=== PATIENT | female | born 1960 | race Caucasian/White ===

== ENCOUNTER 2017-09-05 23:53 | Observation (INO) | payer OTHER ==
[2017-09-06] MEDS: ALBUTEROL 0.083% (NEB) 2.5 MG/3 ML AMP NEB (01:22)
[2017-09-06] MEDS: IPRATROPIUM (NEB) 0.5 MG/2.5 ML AMP NEB (01:22)
[2017-09-06 01:24] LABS: ADD MAN DIFF? NO
[2017-09-06 01:25] LABS: WHITE BLOOD COUNT 4.4 10^3/ul (4.8-10.8)
[2017-09-06 01:25] LABS: BASOPHILS % 0.5 % (0.0-2.0); EOSINOPHILS # 0.1 10^3/ul (0.0-0.5); EOSINOPHILS % 2.7 % (0.0-7.0); HEMATOCRIT 38.1 % (37.0-47.0); HEMOGLOBIN 11.6 g/dl (12.0-16.0); LYMPHOCYTES # 1.3 10^3/ul (0.8-2.9); LYMPHOCYTES % 28.8 % (15.0-51.0); MEAN CORPUSCULAR HEMOGLOBIN 23.4 pg (29.0-33.0); MEAN CORPUSCULAR HGB CONC 30.4 g/dl (32.0-37.0); MEAN PLATELET VOLUME 10.2 fl (7.4-10.4); MONOCYTE # 0.6 10^3/ul (0.3-0.9); MONOCYTES % 12.8 % (0.0-11.0); NEUTROPHIL # 2.4 10^3/ul (1.6-7.5); PLATELET COUNT 220 10^3/UL (140-415); RED BLOOD COUNT 4.95 10^6/ul (4.20-5.40); RED CELL DISTRIBUTION WIDTH 17.4 % (11.5-14.5)
[2017-09-06 01:44] LABS: ANION GAP 10 (8-16); BLOOD UREA NITROGEN 11 mg/dl (7-20); CALCIUM 8.6 mg/dl (8.4-10.2); CARBON DIOXIDE 28 mmol/L (21-31); CHLORIDE 107 mmol/L (97-110); CREATININE 0.64 mg/dl (0.44-1.00); GLUCOSE 174 mg/dl (70-220); POTASSIUM 4.2 mmol/L (3.5-5.1); SODIUM 141 mmol/L (135-144)
[2017-09-06 01:55] LABS: TROPONIN-I < 0.010 ng/ml (0.000-0.120)
[2017-09-06] MEDS ORDERED: BISACODYL (EC) 5 MG TAB PO (03:30)
[2017-09-06] MEDS ORDERED: NITROGLYCERIN (SL) 0.4 MG TAB SL (03:30)
[2017-09-06] MEDS ORDERED: NACL 0.9% 3 ML SYG IV (03:30)
[2017-09-06] MEDS ORDERED: morphine 2 MG INJ IV (03:30)
[2017-09-06] MEDS ORDERED: ONDANSETRON 4 MG INJ IV (03:30)
[2017-09-06] MEDS ORDERED: DOCUSATE SODIUM 100 MG CAP PO (03:30)
[2017-09-06] MEDS ORDERED: ACETAMINOPHEN 325 MG TAB PO (03:30)
[2017-09-06] MEDS: FUROSEMIDE 40 MG INJ IV (03:39)
[2017-09-06 06:11] LABS: ADD MAN DIFF? NO
[2017-09-06 06:24] LABS: WHITE BLOOD COUNT 3.8 10^3/ul (4.8-10.8)
[2017-09-06 06:24] LABS: BASOPHILS % 0.5 % (0.0-2.0); EOSINOPHILS # 0.1 10^3/ul (0.0-0.5); EOSINOPHILS % 2.1 % (0.0-7.0); HEMATOCRIT 36.9 % (37.0-47.0); HEMOGLOBIN 11.3 g/dl (12.0-16.0); LYMPHOCYTES # 1.3 10^3/ul (0.8-2.9); LYMPHOCYTES % 33.1 % (15.0-51.0); MEAN CORPUSCULAR HEMOGLOBIN 23.3 pg (29.0-33.0); MEAN CORPUSCULAR HGB CONC 30.6 g/dl (32.0-37.0); MEAN CORPUSCULAR VOLUME 76.2 fl (82.0-101.0); MEAN PLATELET VOLUME 10.6 fl (7.4-10.4); MONOCYTE # 0.5 10^3/ul (0.3-0.9); MONOCYTES % 12.8 % (0.0-11.0); NEUTROPHILS % 51.2 % (39.0-77.0); PLATELET COUNT 215 10^3/UL (140-415); RED BLOOD COUNT 4.84 10^6/ul (4.20-5.40); RED CELL DISTRIBUTION WIDTH 17.5 % (11.5-14.5)
[2017-09-06 06:48] LABS: IRON 18 ug/dl (35-150)
[2017-09-06 07:03] LABS: % IRON SATURATION 6 % SAT (22-52); TOTAL IRON BINDING CAPACITY 316 ug/dl (241-421)
[2017-09-06 07:17] LABS: ALANINE AMINOTRANSFERASE 30 IU/L (13-69); ALBUMIN/GLOBULIN RATIO 1.21; ALKALINE PHOSPHATASE 88 IU/L (42-121); ANION GAP 14 (8-16); ASPARTATE AMINO TRANSFERASE 28 IU/L (15-46); BLOOD UREA NITROGEN 9 mg/dl (7-20); CALCIUM 8.6 mg/dl (8.4-10.2); CARBON DIOXIDE 29 mmol/L (21-31); CHLORIDE 104 mmol/L (97-110); CHOL/HDL RATIO 6.5 RATIO; CHOLESTEROL 255 mg/dl (100-200); CREATININE 0.61 mg/dl (0.44-1.00); GLUCOSE 158 mg/dl (70-220); HDL CHOLESTEROL 39 mg/dl (37-92); LDL CHOLESTEROL,CALCULATED 189 mg/dl; MAGNESIUM 1.7 mg/dl (1.7-2.5); POTASSIUM 3.5 mmol/L (3.5-5.1); SODIUM 143 mmol/L (135-144); TOTAL PROTEIN 7.3 g/dl (6.1-8.1); TRIGLYCERIDES 135 mg/dl (0-149)
[2017-09-06 07:25] LABS: CREATINE KINASE 41 IU/L (23-200)
[2017-09-06 07:38] LABS: CK-MB 0.81 ng/ml (0.0-2.4); TROPONIN-I < 0.010 ng/ml (0.000-0.120)
[2017-09-06 08:20] LABS: B-TYPE NATRIURETIC PEPTIDE 767 PG/ML (0-125)
[2017-09-06] MEDS: ASPIRIN 81 MG TAB PO (09:40)
[2017-09-06] MEDS: FUROSEMIDE 20 MG INJ IV ×2 (09:40→17:36)
[2017-09-06 10:33] LABS: FREE T4 (FREE THYROXINE) 1.06 ng/dl (0.64-1.79)
[2017-09-06] MEDS ORDERED: ALBUTEROL/IPRATROPIUM (NEB) 3 ML AMP HHN (12:00)
[2017-09-06 12:18] LABS: ADD UMIC NO; UR ASCORBIC ACID NEGATIVE (NEGATIVE); UR BILIRUBIN (Dip) NEGATIVE (NEGATIVE); UR BLOOD (Dip) NEGATIVE (NEGATIVE); UR CLARITY CLEAR (CLEAR); UR COLOR YELLOW (YELLOW); UR GLUCOSE (Dip) NEGATIVE (NEGATIVE); UR KETONES (Dip) NEGATIVE (NEGATIVE); UR LEUKOCYTE ESTERASE (Dip) NEGATIVE Leu/ul (NEGATIVE); UR NITRITE (Dip) NEGATIVE (NEGATIVE); UR SPECIFIC GRAVITY (Dip) 1.011 (1.003-1.030); UR TOTAL PROTEIN (Dip) NEGATIVE (NEGATIVE); UR UROBILINOGEN (Dip) NEGATIVE (NEGATIVE)
[2017-09-06 13:13] LABS: CREATINE KINASE 38 IU/L (23-200)
[2017-09-06 13:27] LABS: CK INDEX 1.5; CK-MB 0.56 ng/ml (0.0-2.4); TROPONIN-I < 0.010 ng/ml (0.000-0.120)
[2017-09-06 13:54] LABS: FERRITIN 19.2 ng/ml (11.1-264.0)
[2017-09-06] MEDS: CEFTRIAXONE 2 GM/50 ML (PMX) 50 ML IVPB (14:18)
[2017-09-06] MEDS: ALBUTEROL/IPRATROPIUM (NEB) 3 ML AMP HHN ×2 (14:36→19:40)
[2017-09-06] MEDS: SPIRONOLACTONE 25 MG TAB PO (18:50)
[2017-09-06] MEDS: POTASSIUM CHLORIDE (SR) 20 MEQ TAB PO (18:50)
[2017-09-06] MEDS ORDERED: ATORVASTATIN 40 MG TAB PO (21:00)
[2017-09-06] MEDS ORDERED: METOPROLOL 25 MG TAB PO (21:00)
[2017-09-06] MEDS: MAGNESIUM SULFATE 3 GM in DEXTROSE 5% 100 ML IVPB (21:25)
[2017-09-06] MEDS: ATORVASTATIN 80 MG TAB PO (21:25)
[2017-09-06] MEDS: LOSARTAN 25 MG TAB PO (21:26)
[2017-09-07] MEDS: FUROSEMIDE 20 MG INJ IV (05:04)
[2017-09-07 06:33] LABS: ADD MAN DIFF? NO
[2017-09-07 06:44] LABS: WHITE BLOOD COUNT 4.3 10^3/ul (4.8-10.8)
[2017-09-07 06:44] LABS: BASOPHILS % 0.5 % (0.0-2.0); EOSINOPHILS # 0.2 10^3/ul (0.0-0.5); EOSINOPHILS % 3.5 % (0.0-7.0); HEMATOCRIT 40.4 % (37.0-47.0); HEMOGLOBIN 12.4 g/dl (12.0-16.0); LYMPHOCYTES # 1.7 10^3/ul (0.8-2.9); LYMPHOCYTES % 39.9 % (15.0-51.0); MEAN CORPUSCULAR HEMOGLOBIN 23.4 pg (29.0-33.0); MEAN CORPUSCULAR HGB CONC 30.7 g/dl (32.0-37.0); MEAN CORPUSCULAR VOLUME 76.4 fl (82.0-101.0); MEAN PLATELET VOLUME 10.5 fl (7.4-10.4); MONOCYTE # 0.5 10^3/ul (0.3-0.9); NEUTROPHIL # 1.9 10^3/ul (1.6-7.5); NEUTROPHILS % 43.9 % (39.0-77.0); PLATELET COUNT 252 10^3/UL (140-415); RED BLOOD COUNT 5.29 10^6/ul (4.20-5.40); RED CELL DISTRIBUTION WIDTH 17.4 % (11.5-14.5)
[2017-09-07 07:13] LABS: B-TYPE NATRIURETIC PEPTIDE 550 PG/ML (0-125)
[2017-09-07 07:15] LABS: PHOSPHORUS 4.8 mg/dl (2.5-4.9)
[2017-09-07 07:15] LABS: MAGNESIUM 2.5 mg/dl (1.7-2.5)
[2017-09-07 07:52] LABS: ALANINE AMINOTRANSFERASE 35 IU/L (13-69); ALBUMIN 3.9 g/dl (3.3-4.9); ALBUMIN/GLOBULIN RATIO 1.08; ALKALINE PHOSPHATASE 88 IU/L (42-121); ANION GAP 15 (8-16); ASPARTATE AMINO TRANSFERASE 29 IU/L (15-46); BILIRUBIN,INDIRECT 0.3 mg/dl (0-1.1); BILIRUBIN,TOTAL 0.3 mg/dl (0.2-1.3); BLOOD UREA NITROGEN 11 mg/dl (7-20); CALCIUM 8.8 mg/dl (8.4-10.2); CARBON DIOXIDE 29 mmol/L (21-31); CHLORIDE 100 mmol/L (97-110); CREATININE 0.64 mg/dl (0.44-1.00); GLUCOSE 170 mg/dl (70-220); POTASSIUM 4.1 mmol/L (3.5-5.1); SODIUM 140 mmol/L (135-144); TOTAL PROTEIN 7.5 g/dl (6.1-8.1)
[2017-09-07] MEDS: ALBUTEROL/IPRATROPIUM (NEB) 3 ML AMP HHN (08:26)
[2017-09-07 08:38] LABS: HEMOGLOBIN A1C 7.2 % (0-5.9)
[2017-09-07] MEDS: SPIRONOLACTONE 25 MG TAB PO (09:39)
[2017-09-07] MEDS: METOPROLOL (XL) 25 MG TAB PO (09:39)
[2017-09-07] MEDS: ASPIRIN 81 MG TAB PO (09:39)
[2017-09-07] MEDS: LOSARTAN 25 MG TAB PO (09:39)
[2017-09-07] MEDS: ENOXAPARIN 40 MG/0.4 ML SYG SC (09:42)
[2017-09-07 10:43] LABS: OCCULT BLOOD STOOL NEGATIVE (NEGATIVE)
[2017-09-07] MEDS ORDERED: LOSARTAN 50 MG TAB PO (21:00)
[2017-09-08] MEDS ORDERED: FUROSEMIDE 40 MG TAB PO (06:00)
== END 2017-09-07 14:28 | disposition home or self-care (01) ==
LOC: E/R 23:53 → TEL 09-06 03:27
DX: I11.0 Hypertensive heart disease with heart failure (principal); I50.23 Acute on chronic systolic (congestive) heart failure; I25.10 Atherosclerotic heart disease of native coronary artery without angina pectoris; I25.2 Old myocardial infarction; Z95.5 Presence of coronary angioplasty implant and graft; I25.5 Ischemic cardiomyopathy; E78.5 Hyperlipidemia, unspecified; E03.9 Hypothyroidism, unspecified; D50.9 Iron deficiency anemia, unspecified; E11.9 Type 2 diabetes mellitus without complications; E66.9 Obesity, unspecified; Z68.38 Body mass index [BMI] 38.0-38.9, adult
CPT/HCPCS: 36415; 71045; 80048; 80053; 80061; 81003; 82270; 82550; 82553; 82728; 83036; 83540; 83735; 83880; 84100; 84439; 84443; 84484; 85025; 93005; 93306; 94640; 94664; 99285-25; G0378